=== PATIENT | male | born 1980 | race Caucasian/White ===

== ENCOUNTER 2019-08-22 23:24 | Emergency (ER) | payer OTHER ==
[2019-08-23] MEDS ORDERED: Ketorolac 60 MG/2 ML SDV IM ONE (00:01)
--- NOTE | 2019-08-23 00:35 | EDM.PDOC ---
ED HPI GENERAL MEDICAL PROBLEM - General Chief Complaint: Back Pain or Injury Stated Complaint: FELL Time Seen by Provider: 08/23/19 00:05 Source of Information: Reports: Patient, Significant Other - History of Present Illness INITIAL COMMENTS - FREE TEXT/NARRATIVE: The patient is a 38-year-old male who presents to the ER secondary to lower back pain. The patient states that he suffered a mechanical fall while at work and fell backwards straight onto his lower lumbar/sacral region. Any range of motion hurts. No radicular symptoms. No leg weakness. No other acute complaints. Lower Back Pain Score (Numeric/FACES): 8 - Related Data Allergies Allergy/AdvReac Type Severity Reaction Status Date / Time adhesive tape Allergy Other Verified 08/22/19 23:40 diazepam [From Valium] Allergy Other Verified 08/22/19 23:40 Home Meds: Home Meds Albuterol Sulfate [Albuterol Sulfate Hfa] 1 puff INH ASDIRECTED 06/05/19 [ History] Albuterol/Ipratropium [DuoNeb 3.0-0.5 MG/3 ML] 1 puff INH ASDIRECTED 06/05/19 [ History] Carvedilol [Coreg] 25 mg PO BID 06/05/19 [History] Flecainide [Tambocor] 50 mg PO TID 06/05/19 [History] QUEtiapine [SEROquel] 400 mg PO DAILY 06/05/19 [History] amLODIPine Besylate [Norvasc] 25 mg PO BID 06/05/19 [History] buPROPion HCl [Wellbutrin Xl] 150 mg PO DAILY 06/05/19 [History] Past Medical History - Past Health History Medical/Surgical History: Denies Medical/Surgical History HEENT History: Reports: None Cardiovascular History: Reports: Arrhythmia, Hypertension, Other (See Below) Other Cardiovascular History: 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, tachycardia, pvc, 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 Respiratory History: Reports: COPD Gastrointestinal History: Reports: Diverticulosis, GERD, Inflammatory Bowel Disease Genitourinary History: Reports: None Neurological History: Reports: None Psychiatric History: Reports: Anxiety, PTSD Endocrine/Metabolic History: Reports: None Hematologic History: Reports: None Immunologic History: Reports: None Oncologic (Cancer) History: Reports: None Dermatologic History: Reports: None - Infectious Disease History Infectious Disease History: Reports: Chicken Pox, Mononucleosis - Past Surgical History Head Surgeries/Procedures: Reports: None Musculoskeletal Surgical History: Reports: Arthroscopic Knee, Other (See Below) Other Musculoskeletal Surgeries/Procedures:: hip sx, spinal block Social & Family History - Family History Family Medical History: Noncontributory - Tobacco Use Smoking Status *Q: Current Every Day Smoker Years of Tobacco use: 22 Packs/Tins Daily: 0.5 - Recreational Drug Use Recreational Drug Use: No ED ROS GENERAL - Review of Systems Review Of Systems: See Below (Nausea for back pain, negative for radiculopathy, negative for weakness, negative for urinary retention, all other Positives and pertinent negatives as per HPI. All other pertinent systems were reviewed and are negative) ED EXAM,LOWER BACK PAIN/INJURY - Physical Exam Exam: See Below Text/Narrative:: Constitutional: No acute distress, Non-toxic appearance, very uncomfortable with movement. HEENT: Normocephalic, Atraumatic, EOMI Neck: Normal range of motion, No stridor, trachea midline Respiratory: No respiratory distress, No tachypnea Cardiovascular: Deferred Gastrointestinal: Deferred Genital / Urinary: Deferred Musculoskeletal: All four extremities present and atraumatic Back: FROM, but painful range of motion, tenderness on the left lower lumbar region and upper sacral region Integument: Warm, Dry, Color is ethnicity appropriate, No rash. Neuro: Alert, Awake, oriented x3, cranial nerves grossly intact, motor strength equal in the bilateral lower extremities at 5/5, normal gait, no focal deficits noted Psych: Affect, Judgement, mood normal Course - Vital Signs Text/Narrative:: The patient does not have any signs of a surgical emergency such as cauda equina syndrome, etc. Lumbar x-rays are reviewed and interpreted by me -fractures, no dislocation, no spondylolisthesis or any acute process The patient will be given an injection of Toradol 60 mg IM and is stable for discharge and conservative therapy on an outpatient basis. Last Recorded V/S: Last Vital Signs Temp 36.4 C 08/22/19 23:34 Pulse 108 H 08/22/19 23:34 Resp 18 08/22/19 23:34 BP 147/96 H 08/22/19 23:34 Pulse Ox 96 08/22/19 23:34 - Orders/Labs/Meds Orders: Active Orders 24 hr Category Date Time Status Lumbar Spine 2 or 3V [CR] Stat Exams 08/23/19 00:00 Taken Meds: Medications Discontinued Medications Generic Name Dose Route Start Last Admin Trade Name Ramon PRN Reason Stop Dose Admin Ketorolac Tromethamine 60 mg 08/23/19 00:01 08/23/19 00:07 Toradol IM 08/23/19 00:02 60 mg ONETIME ONE Administration Departure - Departure Time of Disposition: 00:37 Disposition: Home, Self-Care 01 Condition: Good Clinical Impression: Back contusion - Discharge Information Referrals: PCP,None [Primary Care Provider] - Forms: ED Department Discharge Additional Instructions: BACK PAIN Back pain is very common. The pain often gets better over time. The cause of back pain is usually not dangerous. Most people can learn to manage their back pain on their own. Back pain can last up to 4-6 weeks and still be considered normal. HOME CARE Watch your back pain for any changes. The following actions may help to lessen any pain you are feeling: Stay active. Start with short walks on flat ground if you can. Try to walk farther each day. Carefully exercise regularly, and as tolerated. Exercise helps your back heal faster. It also helps avoid future injury by keeping your muscles strong and flexible. 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 Do not stay in bed for prolonged periods of time. Resting more than 1-2 days can slow down your recovery. Be careful when you bend or lift an object. Use good form when lifting: ? Bend at your knees. ? Keep the object close to your body. ? Do not twist. Sleep on a firm mattress. Lie on your side, and bend your knees. If you lie on your back, put a pillow under your knees. Ibuprofen 800 mg and Tylenol 1000 mg may be taken together every 6 hours as needed for pain Ice often helps for the first 24 hours, after that warm heat usually works better Maintain a healthy weight. Extra weight puts stress on your back. Follow-up with a primary care provider as instructed Sepsis Event Note - Evaluation Sepsis Screening Result: No Definite Risk - Focused Exam Vital Signs: Vital Signs Temp Pulse Resp BP Pulse Ox 08/22/19 23:34 36.4 C 108 H 18 147/96 H 96 Date Exam was Performed: 08/23/19 Time Exam was Performed: 00:37 - My Orders Last 24 Hours: My Active Orders 08/23/19 00:00 Lumbar Spine 2 or 3V [CR] Stat - Assessment/Plan Last 24 Hours: My Active Orders 08/23/19 00:00 Lumbar Spine 2 or 3V [CR] Stat
--- NOTE | 2019-08-23 01:08 | CR ---
HISTORY: Pain after fall COMPARISON: None available. FINDINGS: The lumbar spine was examined with AP, lateral, and lateral spot views for a total of three views. There is no sign of fracture or subluxation. The vertebral bodies are normal in height and they are in anatomic alignment. The disc spaces are normal in height as well. The visualized bony pelvis and bowel gas pattern are normal in appearance. IMPRESSION: Normal lumbar spine. Dictated by Alfredo Choudhary MD @ Aug 23 2019 1:05AM Signed by Dr. Alfredo Choudhary @ Aug 23 2019 1:06AM
== END 2019-08-23 00:45 | disposition home or self-care (01) ==
LOC: MW.ED 23:24
DX: S30.0XXA Contusion of lower back and pelvis, initial encounter (principal); I10 Essential (primary) hypertension; F17.210 Nicotine dependence, cigarettes, uncomplicated; Z88.8 Allergy status to other drugs, medicaments and biological substances; W19.XXXA Unspecified fall, initial encounter
CPT/HCPCS: 72100; 96372; 99283; J1885

== ENCOUNTER 2019-09-04 17:38 | Emergency (ER) | payer SELFPAY ==
--- NOTE | 2019-09-04 18:01 | EDM.PDOC ---
ED HPI GENERAL MEDICAL PROBLEM - General Chief Complaint: ENT Problem Stated Complaint: FEVER/COUGH Time Seen by Provider: 09/04/19 18:01 Source of Information: Reports: Patient History Limitations: Reports: No Limitations - History of Present Illness INITIAL COMMENTS - FREE TEXT/NARRATIVE: HISTORY AND PHYSICAL: History of present illness: Patient is a 38-year-old male presents to the ED with complaint of flu like symptoms. Patient states he has cough, fever, chills, sore throat x 2 days. He denies nausea, vomiting, abdominal pain, diarrhea, chest pain or shortness of breath. Patient has history of asthma and states he has needed his rescue inhaler the past couple of days which does help with his symptoms. He is also taking tylenol and motrin. Review of systems: As per history of present illness and below otherwise all systems reviewed and negative. Past medical history: As per history of present illness and as reviewed below otherwise noncontributory. Surgical history: As per history of present illness and as reviewed below otherwise noncontributory. Social history: No reported history of drug or alcohol abuse. Family history: As per history of present illness and as reviewed below otherwise noncontributory. Physical exam: General: Patient sitting comfortably in no acute distress and nontoxic appearing HEENT: Atraumatic, normocephalic, pupils reactive, negative for conjunctival pallor or scleral icterus, mucous membranes moist, throat clear, neck supple, nontender, trachea midline. No meningeal signs. Lungs: Clear to auscultation, breath sounds equal bilaterally, chest nontender. Heart: S1S2, regular, negative for clicks, rubs, or overt murmur. Abdomen: Soft, nondistended, nontender. Negative for masses or hepatosplenomegaly. Negative for costovertebral tenderness. No rigidity, rebound , guarding. Pelvis: Stable nontender. Genitourinary: Deferred. Rectal: Deferred. Extremities: Atraumatic, negative for cords or calf pain. Neurovascular unremarkable. Neuro: Awake, alert, oriented. Cranial nerves II through XII unremarkable. Cerebellum unremarkable. Motor and sensory unremarkable throughout. Exam nonfocal. Notes: Lungs are CTA and O2 sats 99%. Symptoms consistent with influenza, discussed pros and cons of taking tamiflu and patient declined treatment. Inhaler refilled. Diagnostics: Influenza, rapid strep Therapeutics: none Prescriptions: ProAir inhaler Impression: Viral URI Plan: Drink plenty of fluids and alternate tylenol and motrin as discussed. Follow up with primary care provider Return to ED as needed as discussed Definitive disposition and diagnosis as appropriate pending reevaluation and review of above. Throat Pain Score (Numeric/FACES): 7 - Related Data Allergies Allergy/AdvReac Type Severity Reaction Status Date / Time adhesive tape Allergy Other Verified 09/04/19 17:48 diazepam [From Valium] Allergy Other Verified 09/04/19 17:48 Home Meds: Home Meds Albuterol Sulfate [Albuterol Sulfate Hfa] 1 puff INH ASDIRECTED 06/05/19 [ History] Albuterol/Ipratropium [DuoNeb 3.0-0.5 MG/3 ML] 1 puff INH ASDIRECTED 06/05/19 [ History] Carvedilol [Coreg] 25 mg PO BID 06/05/19 [History] Flecainide [Tambocor] 50 mg PO TID 06/05/19 [History] QUEtiapine [SEROquel] 400 mg PO DAILY 06/05/19 [History] amLODIPine Besylate [Norvasc] 25 mg PO BID 06/05/19 [History] buPROPion HCl [Wellbutrin Xl] 150 mg PO DAILY 06/05/19 [History] Albuterol Sulfate [Proair Hfa] 8.5 gm IH Q4H #1 hfa.[email or web address] 09/04/19 [Rx] Past Medical History - Past Health History Medical/Surgical History: Denies Medical/Surgical History HEENT History: Reports: None Cardiovascular History: Reports: Arrhythmia, Hypertension, Other (See Below) Other Cardiovascular History: 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, tachycardia, pvc, 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 Respiratory History: Reports: COPD Gastrointestinal History: Reports: Diverticulosis, GERD, Inflammatory Bowel Disease Genitourinary History: Reports: None Neurological History: Reports: None Psychiatric History: Reports: Anxiety, PTSD Endocrine/Metabolic History: Reports: None Hematologic History: Reports: None Immunologic History: Reports: None Oncologic (Cancer) History: Reports: None Dermatologic History: Reports: None - Infectious Disease History Infectious Disease History: Reports: Chicken Pox, Mononucleosis - Past Surgical History Head Surgeries/Procedures: Reports: None Musculoskeletal Surgical History: Reports: Arthroscopic Knee, Other (See Below) Other Musculoskeletal Surgeries/Procedures:: hip sx, spinal block Social & Family History - Family History Family Medical History: Noncontributory - Tobacco Use Smoking Status *Q: Current Every Day Smoker Years of Tobacco use: 22 Packs/Tins Daily: 0.5 ED ROS ENT - Review of Systems Review Of Systems: Comprehensive ROS is negative, except as noted in HPI. ED EXAM, ENT - Physical Exam Exam: See Below (see dictation) Course - Vital Signs Last Recorded V/S: Last Vital Signs Temp 97.9 F 09/04/19 17:46 Pulse 110 H 09/04/19 17:46 Resp 18 09/04/19 17:46 BP 157/84 H 09/04/19 17:46 Pulse Ox 96 09/04/19 17:46 - Orders/Labs/Meds Orders: Active Orders 24 hr Category Date Time Status CULTURE STREP A CONFIRMATION [RM] Stat Lab 09/04/19 17:53 Results STREP SCRN A RAPID W CULT CONF [RM] Stat Lab 09/04/19 17:53 Received Departure - Departure Time of Disposition: 18:24 Disposition: Home, Self-Care 01 Condition: Good Clinical Impression: Viral URI - Discharge Information Prescriptions: Albuterol Sulfate [Proair Hfa] 8.5 gm IH Q4H #1 hfa.aer.ad Referrals: PCP,None [Primary Care Provider] - Forms: ED Department Discharge Additional Instructions: The following information is given to patients seen in the emergency department who are being discharged to home. This information is to outline your options for follow-up care. We provide all patients seen in our emergency department with a follow-up referral. The need for follow-up, as well as the timing and circumstances, are variable depending upon the specifics of your emergency department visit. If you don't have a primary care physician on staff, we will provide you with a referral. We always advise you to contact your personal physician following an emergency department visit to inform them of the circumstance of the visit and for follow-up with them and/or the need for any referrals to a consulting specialist. The emergency department will also refer you to a specialist when appropriate. This referral assures that you have the opportunity for follow-up care with a specialist. All of these measure are taken in an effort to provide you with optimal care, which includes your follow-up. Under all circumstances we always encourage you to contact your private physician who remains a resource for coordinating your care. When calling for follow-up care, please make the office aware that this follow-up is from your recent emergency room visit. If for any reason you are refused follow-up, please contact the [facility] Emergency Department at and asked to speak to the emergency department charge nurse. [facility] [address] [place] [id number] [facility] [address] [place] [id number] Drink plenty of fluids and alternate tylenol and motrin as discussed. Follow up with primary care provider Return to ED as needed as discussed Sepsis Event Note - Evaluation Sepsis Screening Result: No Definite Risk - Focused Exam Vital Signs: Vital Signs Temp Pulse Resp BP Pulse Ox 09/04/19 17:46 97.9 F 110 H 18 157/84 H 96 Date Exam was Performed: 09/04/19 Time Exam was Performed: 18:26 - My Orders Last 24 Hours: My Active Orders 09/04/19 17:53 CULTURE STREP A CONFIRMATION [RM] Stat STREP SCRN A RAPID W CULT CONF [RM] Stat - Assessment/Plan Last 24 Hours: My Active Orders 09/04/19 17:53 CULTURE STREP A CONFIRMATION [RM] Stat STREP SCRN A RAPID W CULT CONF [] Stat
== END 2019-09-04 19:05 | disposition home or self-care (01) ==
LOC: MW.ED 17:38
DX: J06.9 Acute upper respiratory infection, unspecified (principal); I10 Essential (primary) hypertension; F41.9 Anxiety disorder, unspecified; J44.9 Chronic obstructive pulmonary disease, unspecified; F17.210 Nicotine dependence, cigarettes, uncomplicated; Z79.899 Other long term (current) drug therapy; Z91.09 Other allergy status, other than to drugs and biological substances; Z88.8 Allergy status to other drugs, medicaments and biological substances
CPT/HCPCS: 87081; 87804; 87880-QW; 99283

== ENCOUNTER 2019-09-13 20:58 | Emergency (ER) | payer SELFPAY ==
--- NOTE | 2019-09-13 21:06 | EDM.PDOC ---
ED HPI GENERAL MEDICAL PROBLEM - General Chief Complaint: ENT Problem Stated Complaint: sore throat Time Seen by Provider: 09/13/19 20:59 Source of Information: Reports: Patient History Limitations: Reports: No Limitations - Related Data Allergies Allergy/AdvReac Type Severity Reaction Status Date / Time adhesive tape Allergy Other Verified 09/04/19 17:48 diazepam [From Valium] Allergy Other Verified 09/04/19 17:48 Home Meds: Home Meds Albuterol Sulfate [Albuterol Sulfate Hfa] 1 puff INH ASDIRECTED 06/05/19 [ History] Albuterol/Ipratropium [DuoNeb 3.0-0.5 MG/3 ML] 1 puff INH ASDIRECTED 06/05/19 [ History] Carvedilol [Coreg] 25 mg PO BID 06/05/19 [History] Flecainide [Tambocor] 50 mg PO TID 06/05/19 [History] QUEtiapine [SEROquel] 400 mg PO DAILY 06/05/19 [History] amLODIPine Besylate [Norvasc] 25 mg PO BID 06/05/19 [History] buPROPion HCl [Wellbutrin Xl] 150 mg PO DAILY 06/05/19 [History] Albuterol Sulfate [Proair Hfa] 8.5 gm IH Q4H #1 hfa.aer.ad 09/04/19 [Rx] Past Medical History - Past Health History Medical/Surgical History: Denies Medical/Surgical History HEENT History: Reports: None Cardiovascular History: Reports: Arrhythmia, Hypertension, Other (See Below) Other Cardiovascular History: 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, tachycardia, pvc, 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 Respiratory History: Reports: COPD Gastrointestinal History: Reports: Diverticulosis, GERD, Inflammatory Bowel Disease Genitourinary History: Reports: None Neurological History: Reports: None Psychiatric History: Reports: Anxiety, PTSD Endocrine/Metabolic History: Reports: None Hematologic History: Reports: None Immunologic History: Reports: None Oncologic (Cancer) History: Reports: None Dermatologic History: Reports: None - Infectious Disease History Infectious Disease History: Reports: Chicken Pox, Mononucleosis - Past Surgical History Head Surgeries/Procedures: Reports: None Musculoskeletal Surgical History: Reports: Arthroscopic Knee, Other (See Below) Other Musculoskeletal Surgeries/Procedures:: hip sx, spinal block Social & Family History - Family History Family Medical History: Noncontributory Course - Orders/Labs/Meds Orders: Active Orders 24 hr Category Date Time Status INFLUENZA A+B AG SCREEN [RM] Stat Lab 09/13/19 20:59 Ordered STREP SCRN A RAPID W CULT CONF [RM] Stat Lab 09/13/19 20:59 Ordered Isolation [COMM] Routine Oth 09/13/19 20:59 Ordered Departure - Discharge Information - My Orders Last 24 Hours: My Active Orders 09/13/19 20:59 INFLUENZA A+B AG SCREEN [RM] Stat STREP SCRN A RAPID W CULT CONF [RM] Stat Isolation [COMM] Routine - Assessment/Plan Last 24 Hours: My Active Orders 09/13/19 20:59 INFLUENZA A+B AG SCREEN [RM] Stat STREP SCRN A RAPID W CULT CONF [RM] Stat Isolation [COMM] Routine
== END 2019-09-13 21:05 | disposition home or self-care (01) ==
LOC: MW.ED 20:58
DX: Z53.21 Procedure and treatment not carried out due to patient leaving prior to being seen by health care provider (principal)